=== PATIENT | female | born 1990 | race African-American/Black ===

== ENCOUNTER 2017-03-06 11:01 | Emergency (ER) | payer MEDICAID ==
[~2017-03-06] VITALS: Ht 160 cm; Wt 100.0 kg
[2017-03-06 11:04] VITALS: BP 120/70; PULSE 84; RESP 20; TEMP 98.1; O2SAT 97
--- NOTE | 2017-03-06 12:05 | PD ---
HPI . left ankle foot pain for few days Chief Complaint: Pain: Acute or Chronic Time Seen by Provider: 12:05 Travel History International Travel<30 days: No Contact w/Intl Traveler<30days: No Traveled to known affect area: No History of Present Illness HPI 26-year-old female with no past medical history here with complaints of left ankle and foot pain. Patient tells me she went to an urgent care was told she had gout. She was given steroids and tells me they are not helping. She decided to come to the emergency department because she thinks she may have sprained her ankle or her foot. When asked about a injury, patient tells me she 's not certain. She tells me she thinks she may have twisted her ankle while she was cleaning. She denies any falls or head injury. She has no other complaints. She rates the pain as the most severe. She denies any radiation elsewhere. PFSH Past Medical History Anemia: Yes Diminished Hearing: No Hypertension: Yes (STATES RELATED) Musculoskeletal: Yes (SCIATICA) ?: Not : 4 Para: 4 Tubal Ligation: Yes Past Surgical History Section: Yes (x4) Gynecologic Surgery: Yes (C SECTION, bilateral tubal ligation) Social History Alcohol Use: Yes (OCC) Tobacco Use: No Substance Use: No Allergies-Medications (Allergen,Severity, Reaction): Coded Allergies: Aspirin (Verified Allergy, Intermediate, Hives, 03/06/17) Reported Meds & Prescriptions Reported Meds & Active Scripts Active No Active Prescriptions or Reported Medications Review of Systems General / Constitutional: No: Fever Eyes: No: Visual changes HENT: No: Headaches Cardiovascular: No: Chest Pain or Discomfort Respiratory: No: Shortness of Breath Gastrointestinal: No: Abdominal Pain Genitourinary: No: Dysuria Musculoskeletal: Positive: Pain (left ankle and foot) Skin: No Rash Neurologic: No: Weakness Psychiatric: No: Depression Endocrine: No: Polydipsia Hematologic/Lymphatic: No: Easy Bruising Physical Exam Narrative GENERAL: AAO x 3, no acute distress, Well-nourished, well-developed patient. SKIN: Warm and dry. No visible rashes or bruising. HEAD: Normocephalic and atraumatic. EYES: No scleral icterus. No injection or drainage. EOM intact, PERRLA ENT: No nasal drainage noted. Mucous membranes pink. Airway patent. NECK: Supple, trachea midline. No JVD. CARDIOVASCULAR: Regular rate and rhythm without murmurs, gallops, or rubs. RESPIRATORY: Breath sounds equal bilaterally. No accessory muscle use. No rhonchi or rales. GASTROINTESTINAL: Abdomen soft, non-tender, nondistended. EXTREMITIES: No cyanosis. Mild trace pedal edema of the left anterior foot, pedal pulses are intact, tenderness over the first metatarsal and lateral malleolus of the left foot, decreased range of motion secondary pain. mild edema of lateral malleolus BACK: Nontender without obvious deformity. No CVA tenderness. NEURO: CN II-12 intact, lodging facilities manager strength normal b/l, UE and LE 5/5, no focal deficits PSYCH: AAO x 3, normal affect. Data Data Last Documented VS Vital Signs Date Time Temp Pulse Resp B/P Pulse Ox O2 Delivery O2 Flow Rate FiO2 03/06/17 11:04 98.1 84 20 120/70 97 Room Air Orders Ankle, Complete ([id number]) (03/06/17 12:09) Foot, Complete ([id number]) (03/06/17 12:09) ^ Moreno Bandage (03/06/17 13:33) Crutches (03/06/17 13:33) MDM Medical Decision Making Medical Screen Exam Complete: Yes Emergency Medical Condition: Yes Medical Record Reviewed: Yes Differential Diagnosis ankle sprain, less likely fracture, gout, OA, RA, Narrative Course 26-year-old female here with acute onset of left ankle and foot pain for the past few days. She was seen in urgent care and told she has gout. She is currently taking steroids. She doesn't want anything for pain and just wants to know what is wrong with her ankle. Although I do not believe she has any acute fractures, she does meet imaging criteria per [facility] ankle rules. Imaging does not reveal any sort of acute fracture or pathology. Last Impressions Foot X-Ray 03/06/17 1209 Signed Impressions: Service Date/Time: Saturday, March 06, 2017 12:20 - CONCLUSION: Negative for fracture or dislocation. Follow up in 7-10 days is suggested if symptoms persist. Iggy Lucio MD FACR I've explained this to the patient and she is understanding. I explained that it could be a mild sprain. I have provided her with Moreno wrap and crutches. I recommend that she offload for the next 2-3 days. She can use [id number] Tylenol or Motrin as needed for pain. Ultimately she will need follow-up with the primary care provider. Patient verbalized understanding of instructions, questions were answered, and thanked me for their care. I advised them if their condition worsens, please return to the nearest emergency room for further care. Diagnosis Primary Impression: Ankle pain Qualified Code: M25.572 - Acute left ankle pain Additional Impression: Foot pain, left Patient Instructions: General Instructions Additional Instructions: Rest the affected area as much as possible. Ice this area for 15-20 minutes at a time. You can do this every hour or as much as tolerated. Keep this area compressed (moreno bandage) as tolerated. Elevate this area. Use ibuprofen as needed for pain and inflammation. Please return to emergency department if your symptoms return or worsen. Follow up with your primary care provider. Take medications as prescribed. Use over the counter tylenol or ibuprofen as needed. Scripts No Active Prescriptions or Reported Meds Disposition: 01 DISCHARGE HOME Condition: Stable Katya Rudolph Mar 06, 2017 12:05
--- NOTE | 2017-03-06 13:02 | RADRPT ---
EXAM DATE/TIME: 03/06/2017 12:20 [facility] COMPARISON: No previous studies available for comparison. INDICATIONS : Left foot pain for 4 days. MEDICAL HISTORY : None. SURGICAL HISTORY : None. ENCOUNTER: Initial ACUITY: 4 - 6 days PAIN SCORE: 10/10 LOCATION: Left lateral foot. FINDINGS: Three view examination of the left foot demonstrates no soft tissue swelling, dislocation, or fractur e. The tarsal bones appear intact. The interphalangeal and metatarsophalangeal joints are intact. The calcaneus is intact. Bony mineralization is normal. CONCLUSION: Negative for fracture or dislocation. Follow up in 7-10 days is suggested if symptoms persist. Iggy Lucio MD FACR on March 06, 2017 at 12:59 Board Certified Radiologist. This report was verified electronically.
--- NOTE | 2017-03-06 13:05 | RADRPT ---
EXAM DATE/TIME: 03/06/2017 12:23 [facility] COMPARISON: No previous studies available for comparison. INDICATIONS : Left ankle pain. MEDICAL HISTORY : None. SURGICAL HISTORY : None. ENCOUNTER: Initial ACUITY: 4 - 6 days PAIN SCORE: 10/10 LOCATION: Left lateral ankle FINDINGS: There is generalized soft-tissue swelling evident. Bone density is normal. Alignment is anatomic. A fracture is not appreciated. CONCLUSION: Soft-tissue swelling. Otherwise, negative. Iggy Lucio MD FACR on March 06, 2017 at 13:00 Board Certified Radiologist. This report was verified electronically.
== END 2017-03-06 14:01 | disposition home or self-care (01) ==
LOC: NEPD 11:01
DX: M25.572 Pain in left ankle and joints of left foot (principal); I10 Essential (primary) hypertension
CPT/HCPCS: 73610; 73630; 99283; E0113

== ENCOUNTER 2017-04-07 17:03 | Emergency (ER) | payer MEDICAID ==
[2017-04-07 17:05] VITALS: BP 129/76; PULSE 104; RESP 20; TEMP 98.9; O2SAT 96
== END 2017-04-07 17:56 | disposition left against medical advice (07) ==
LOC: NED 17:03
DX: S49.92XA Unspecified injury of left shoulder and upper arm, initial encounter (principal); X58.XXXA Exposure to other specified factors, initial encounter; Z53.21 Procedure and treatment not carried out due to patient leaving prior to being seen by health care provider
CPT/HCPCS: 99281

== ENCOUNTER 2017-06-13 16:43 | Emergency (ER) | payer MEDICAID ==
[~2017-06-13] VITALS: Ht 160 cm; Wt 107.0 kg
[2017-06-13 16:44] VITALS: BP 153/89; PULSE 102; RESP 14; TEMP 98.2; O2SAT 100
--- NOTE | 2017-06-13 17:05 | PD ---
Physical Exam Date Seen by Provider: Jun 13, 2017 Time Seen by Provider: 17:01 Narrative 26-year-old Afro-[place] female presents to the emergency department with a history of nausea, vomiting, and abdominal pain. She states it started 2 days ago. Last menstrual period was one week ago. Patient states she could be . She denies upper respiratory symptoms, fever, urinary symptoms, or diarrhea. Pain is a 7 out of 10 in the middle upper abdomen. Patient is allergic to aspirin. Urinalysis and test is ordered. Vital signs are stable. Patient is awaiting med bed placement. Data Data Last Documented VS Vital Signs Date Time Temp Pulse Resp B/P (MAP) Pulse Ox O2 Delivery O2 Flow Rate FiO2 06/13/17 16:44 98.2 102 14 153/89 (110) 100 MDM Medical Record Reviewed: Yes Supervised Visit with ALMAZ: Yes Scripts No Active Prescriptions or Reported Meds Condition: Stable Antony Van Jun 13, 2017 17:05
[2017-06-13] MEDS ORDERED: SODIUM CHLOR 0.9% 1000 ML INJ 1,000 ML IV SCH (17:41)
[2017-06-13] MEDS ORDERED: ONDANSETRON HCL 4 MG/2 ML VIAL IVP ONE (17:45)
[2017-06-13] MEDS ORDERED: SODIUM CHLORIDE 0.9% FLUSH 10 ML FLUSH IV FLUSH PRN (17:45)
[2017-06-13 18:00] VITALS: RESP 18; O2SAT 97
[2017-06-13 18:02] LABS: BACTERIA, URINE MANY /hpf; BLOOD, URINE NEG (NEG); COMMENT (UR) CULTURE INDICATED; CULTURE IF INDICATED CULTURE INDICATED; GLUCOSE,URINE NEG (NEG); KETONE, URINE NEG (NEG); NITRITE,URINE NEG (NEG); PH, URINE 6.5 (5.0-8.5); SQUAMOUS EPITHELIAL CELL URINE 3 /hpf (0-5); URINE COLOR YELLOW (YELLW/STRAW)
[2017-06-13 18:26] LABS: BASOPHIL % 0.4 % (0.0-2.0); EOSINOPHIL # 0.1 TH/MM3 (0-0.4); EOSINOPHIL % 0.9 % (0.0-4.0); HEMATOCRIT 34.2 % (35.0-46.0); HEMO FLAGS DIFF FINAL; LYMPH % 36.1 % (9.0-44.0); LYMPHOCYTE # 2.8 TH/MM3 (1.0-4.8); MEAN CORPUSCULAR HEMOGLOBIN 26.4 PG (27.0-34.0); MEAN CORPUSCULAR HGB CONC 32.6 % (32.0-36.0); MONO % 9.9 % (0.0-8.0); NEUT % 52.7 % (16.0-70.0); PLATELET COUNT 307 TH/MM3 (150-450); RED BLOOD COUNT 4.22 MIL/MM3 (4.00-5.30); RED CELL DISTRIBUTION WIDTH 13.8 % (11.6-17.2); WHITE BLOOD COUNT 7.6 TH/MM3 (4.0-11.0)
--- NOTE | 2017-06-13 18:40 | PD ---
HPI Chief Complaint: GI Complaint Time Seen by Provider: 17:40 Travel History International Travel<30 days: No Contact w/Intl Traveler<30days: No Traveled to known affect area: No History of Present Illness HPI Patient is a 26-year-old female presenting to the emergency department for evaluation of nausea, vomiting, diarrhea, abdominal pain. Patient states it started 3 days ago, she has not vomited or had any diarrhea today. She feels weak but her symptoms have improved. She states the pain in her abdomen is achy and crampy. She denies any fever, chills, dysuria, back pain, chest pain or shortness of breath. She denies any significant past medical history. Patient states she's been unable to keep down food or fluids and is scared to eat today. PFSH Past Medical History Anemia: Yes Diminished Hearing: No Hypertension: Yes (STATES RELATED) Musculoskeletal: Yes (SCIATICA) ?: Unknown LMP: 06/05/2017 : 4 Para: 4 Tubal Ligation: Yes Past Surgical History Section: Yes (x4) Gynecologic Surgery: Yes (C SECTION, bilateral tubal ligation) Social History Alcohol Use: Yes (OCC) Tobacco Use: No Substance Use: No Allergies-Medications (Allergen,Severity, Reaction): Coded Allergies: aspirin (Unverified Allergy, Intermediate, Hives, 05/07/17) Reported Meds & Prescriptions Reported Meds & Active Scripts Active No Active Prescriptions or Reported Medications Review of Systems Except as stated in HPI: all other systems reviewed are Neg Gastrointestinal: Positive: Nausea, Vomiting, Abdominal Pain Neurologic: Positive: Weakness Physical Exam Narrative GENERAL: Overweight, well-developed, alert female. Resting comfortably in no acute distress. SKIN: Warm and dry. HEAD: Atraumatic. Normocephalic. EYES: Pupils equal and round. No scleral icterus. No injection or drainage. ENT: No nasal bleeding or discharge. Mucous membranes pink and moist. NECK: Trachea midline. No JVD. CARDIOVASCULAR: Regular rate and rhythm. RESPIRATORY: No accessory muscle use. Clear to auscultation. Breath sounds equal bilaterally. GASTROINTESTINAL: Abdomen soft, non-tender, nondistended. Hepatic and splenic margins not palpable. Positive bowel sounds, no rebound, no guarding. MUSCULOSKELETAL: Extremities without clubbing, cyanosis, or edema. No obvious deformities. NEUROLOGICAL: Awake and alert. No obvious cranial nerve deficits. Motor grossly within normal limits. Five out of 5 muscle strength in the arms and legs. Normal speech. PSYCHIATRIC: Appropriate mood and affect; insight and judgment normal. Data Data Last Documented VS Vital Signs Date Time Temp Pulse Resp B/P (MAP) Pulse Ox O2 Delivery O2 Flow Rate FiO2 06/13/17 18:00 18 97 06/13/17 16:44 98.2 102 Orders Orders Urinalysis - C+S If Indicated (06/13/17 17:05) Ed Urine Pregnancytest Poc (06/13/17 17:05) Complete Blood Count With Diff (06/13/17 17:41) Comprehensive Metabolic Panel (06/13/17 17:41) Lipase (06/13/17 17:41) Iv Access Insert/Monitor (06/13/17 17:41) Ecg Monitoring (06/13/17 17:41) Oximetry (06/13/17 17:41) Ondansetron Inj (Zofran Inj) (06/13/17 17:45) Sodium Chlor 0.9% 1000 Ml Inj (Ns 1000 M (06/13/17 17:41) Sodium Chloride 0.9% Flush (Ns Flush) (06/13/17 17:45) Urine Culture (06/13/17 UNK) Labs Laboratory Tests Test 06/13/17 00:00 06/13/17 17:50 Urine Color YELLOW Urine Turbidity HAZY Urine pH 6.5 Urine Specific [place] 1.018 Urine Protein NEG mg/dL Urine Glucose (UA) NEG mg/dL Urine Ketones NEG mg/dL Urine Occult Blood NEG Urine Nitrite NEG Urine Bilirubin NEG Urine Urobilinogen 2.0 MG/DL Urine Leukocyte Esterase TRACE Urine RBC 2 /hpf Urine WBC 5 /hpf Urine Squamous Epithelial Cells 3 /hpf Urine Bacteria MANY /hpf Microscopic Urinalysis Comment CULTURE INDICATED White Blood Count 7.6 TH/MM3 Red Blood Count 4.22 MIL/MM3 Hemoglobin 11.2 GM/DL Hematocrit 34.2 % Mean Corpuscular Volume 81.0 FL Mean Corpuscular Hemoglobin 26.4 PG Mean Corpuscular Hemoglobin Concent 32.6 % Red Cell Distribution Width 13.8 % Platelet Count 307 TH/MM3 Mean Platelet Volume 8.9 FL Neutrophils (%) (Auto) 52.7 % Lymphocytes (%) (Auto) 36.1 % Monocytes (%) (Auto) 9.9 % Eosinophils (%) (Auto) 0.9 % Basophils (%) (Auto) 0.4 % Neutrophils # (Auto) 4.0 TH/MM3 Lymphocytes # (Auto) 2.8 TH/MM3 Monocytes # (Auto) 0.8 TH/MM3 Eosinophils # (Auto) 0.1 TH/MM3 Basophils # (Auto) 0.0 TH/MM3 CBC Comment DIFF FINAL Differential Comment Blood Urea Nitrogen 9 MG/DL Creatinine 0.72 MG/DL Random Glucose 89 MG/DL Total Protein 7.7 GM/DL Albumin 3.3 GM/DL Calcium Level 8.9 MG/DL Alkaline Phosphatase 97 U/L Aspartate Amino Transf (AST/SGOT) 11 U/L Alanine Aminotransferase (ALT/SGPT) 14 U/L Total Bilirubin 0.3 MG/DL Sodium Level 139 MEQ/L Potassium Level 3.5 MEQ/L Chloride Level 105 MEQ/L Carbon Dioxide Level 29.0 MEQ/L Anion Gap 5 MEQ/L Estimat Glomerular Filtration Rate 117 ML/MIN Lipase 152 U/L [facility] Medical Decision Making Medical Screen Exam Complete: Yes Emergency Medical Condition: Yes Interpretation(s) Vital Signs Date Time Temp Pulse Resp B/P (MAP) Pulse Ox O2 Delivery O2 Flow Rate FiO2 06/13/17 18:00 18 97 06/13/17 18:00 18 06/13/17 16:44 98.2 102 14 153/89 (110) 100 Laboratory Tests Test 06/13/17 00:00 06/13/17 17:50 Urine Color YELLOW Urine Turbidity HAZY Urine pH 6.5 Urine Specific [place] 1.018 Urine Protein NEG mg/dL Urine Glucose (UA) NEG mg/dL Urine Ketones NEG mg/dL Urine Occult Blood NEG Urine Nitrite NEG Urine Bilirubin NEG Urine Urobilinogen 2.0 MG/DL Urine Leukocyte Esterase TRACE Urine RBC 2 /hpf Urine WBC 5 /hpf Urine Squamous Epithelial Cells 3 /hpf Urine Bacteria MANY /hpf Microscopic Urinalysis Comment CULTURE INDICATED White Blood Count 7.6 TH/MM3 Red Blood Count 4.22 MIL/MM3 Hemoglobin 11.2 GM/DL Hematocrit 34.2 % Mean Corpuscular Volume 81.0 FL Mean Corpuscular Hemoglobin 26.4 PG Mean Corpuscular Hemoglobin Concent 32.6 % Red Cell Distribution Width 13.8 % Platelet Count 307 TH/MM3 Mean Platelet Volume 8.9 FL Neutrophils (%) (Auto) 52.7 % Lymphocytes (%) (Auto) 36.1 % Monocytes (%) (Auto) 9.9 % Eosinophils (%) (Auto) 0.9 % Basophils (%) (Auto) 0.4 % Neutrophils # (Auto) 4.0 TH/MM3 Lymphocytes # (Auto) 2.8 TH/MM3 Monocytes # (Auto) 0.8 TH/MM3 Eosinophils # (Auto) 0.1 TH/MM3 Basophils # (Auto) 0.0 TH/MM3 CBC Comment DIFF FINAL Differential Comment Blood Urea Nitrogen 9 MG/DL Creatinine 0.72 MG/DL Random Glucose 89 MG/DL Total Protein 7.7 GM/DL Albumin 3.3 GM/DL Calcium Level 8.9 MG/DL Alkaline Phosphatase 97 U/L Aspartate Amino Transf (AST/SGOT) 11 U/L Alanine Aminotransferase (ALT/SGPT) 14 U/L Total Bilirubin 0.3 MG/DL Sodium Level 139 MEQ/L Potassium Level 3.5 MEQ/L Chloride Level 105 MEQ/L Carbon Dioxide Level 29.0 MEQ/L Anion Gap 5 MEQ/L Estimat Glomerular Filtration Rate 117 ML/MIN Lipase 152 U/L Vital Signs Date Time Temp Pulse Resp B/P (MAP) Pulse Ox O2 Delivery O2 Flow Rate FiO2 06/13/17 18:00 18 97 06/13/17 18:00 18 06/13/17 16:44 98.2 102 14 153/89 (110) 100 Differential Diagnosis UTI versus gastroenteritis versus metabolic abnormality versus other Narrative Course Patient is a 26-year-old female presenting for evaluation of GI symptoms that started 3 days ago. Patient's symptoms appear to be improving, she has not had any nausea or vomiting area today. Her vital signs are stable, labs ordered and pending. Ideally we will hydrate her and give Zofran, then offer a fluid challenge. Patient reports feeling better after IV fluids and Zofran. She was encouraged to maintain a bland, low residue diet increasing as tolerated. She was urged to increase fluid intake. She is encouraged follow-up with her primary doctor. She was advised to return to emergency department immediately for any new or worsening symptoms. Patient verbalized understanding of these instructions. Physical examination labs findings appear most consistent with a viral gastroenteritis. Patient's symptoms again have improved today from the prior 2 days. She verbalized understanding of discharge instructions. Patient is stable for discharge. Diagnosis Primary Impression: Gastrointestinal symptoms Additional Impression: Nausea & vomiting Qualified Codes: R11.2 - Nausea with vomiting, unspecified Referrals: Primary Care Physician 1 day Patient Instructions: Acute Nausea and Vomiting (ED), General Instructions Additional Instructions: Follow-up with your primary doctor Maintain a bland, easy to digest diet, increase as tolerated Maintain adequate fluid intake Take medications as needed and as directed for nausea Return to emergency department for any new or worsening symptoms Med/Other Pt SpecificInfo: Prescription(s) given Scripts Ondansetron Odt (Zofran Odt) 4 Mg Tab 4 MG SL Q6HR Y for Nausea/Vomiting, #12 TAB 0 Refills Prov: Winsome Ryan 06/13/17 Disposition: 01 DISCHARGE HOME Condition: Stable Winsome Ryan Jun 13, 2017 18:40
[2017-06-13 18:59] LABS: ANION GAP 5 MEQ/L (5-15); AST (GOT) 11 U/L (15-37); BLOOD UREA NITROGEN 9 MG/DL (7-18); CHLORIDE 105 MEQ/L (98-107); GLOMERULAR FILTRATION RATE 117 ML/MIN (>89); POTASSIUM 3.5 MEQ/L (3.5-5.1); SODIUM (NA) 139 MEQ/L (136-145)
[2017-06-13 19:03] LABS: ALKALINE PHOSPHATASE 97 U/L (45-117); ALT (GPT) 14 U/L (10-53); TOTAL BILIRUBIN ADULT 0.3 MG/DL (0.2-1.0)
[2017-06-13] MEDS ORDERED: ZOFR4TAB3 SL (19:48)
[2017-06-13 20:02] VITALS: BP 143/86
== END 2017-06-13 17:30 | disposition home or self-care (01) ==
LOC: NEPD 16:43
DX: R11.2 Nausea with vomiting, unspecified (principal); R10.84 Generalized abdominal pain
CPT/HCPCS: 80053; 81001; 83690; 84703; 85025; 87077; 87086; 87186; 99283; J2405; J7030